=== PATIENT | male | born 1965 | race Caucasian/White ===

== ENCOUNTER 2019-01-08 20:18 | Emergency (ER) | payer MEDICAID, OTHER ==
[~2019-01-08] VITALS: Ht 177.8 cm; Wt 88.5 kg
[2019-01-08 20:24] VITALS: BP_SYST 142
[2019-01-08] MEDS ORDERED: IBUPROFEN 600 MG TABLET PO ONE (21:30)
[2019-01-08 22:30] VITALS: BP_SYST 128
== END 2019-01-08 22:30 | disposition home or self-care (01) ==
LOC: SED 20:18
DX: S93.401A Sprain of unspecified ligament of right ankle, initial encounter (principal); K21.9 Gastro-esophageal reflux disease without esophagitis; I10 Essential (primary) hypertension; M79.7 Fibromyalgia; Z86.73 Personal history of transient ischemic attack (TIA), and cerebral infarction without residual deficits; Z86.79 Personal history of other diseases of the circulatory system; Z85.05 Personal history of malignant neoplasm of liver; X50.9XXA Other and unspecified overexertion or strenuous movements or postures, initial encounter; Y93.89 Activity, other specified; Y92.89 Other specified places as the place of occurrence of the external cause; Y99.8 Other external cause status
CPT/HCPCS: 99283